=== PATIENT | female | born 1990 | race Caucasian/White ===

== ENCOUNTER 2017-05-15 22:07 | Emergency (ER) | payer OTHER ==
[2017-05-15 22:26] VITALS: BP 137/70; PULSE 107; RESP 18; TEMP 97.8
[2017-05-15] MEDS ORDERED: LORazepam 1 MG TAB PO STA (23:37)
--- NOTE | 2017-05-15 23:37 | ED ---
Recheck HPI - General Chief Complaint: Recheck/Abnormal Lab/Rx Stated Complaint: left side pain/spasm Time Seen by Provider: 05/15/17 23:20 Source: patient Mode of arrival: ambulatory Limitations: no limitations - Related Data Home Medications Medication Instructions Recorded Confirmed Gabapentin 800 mg PO TID 07/02/16 05/15/17 QUEtiapine [SEROquel] 50 mg PO HS 05/15/17 05/15/17 Previous Rx's Medication Instructions Recorded Famotidine [Pepcid] 20 mg PO BID PRN #60 tab 06/02/16 LORazepam [Ativan] 0.5 mg PO TID #12 tab 05/15/17 Allergies Allergy/AdvReac Type Severity Reaction Status Date / Time amoxicillin Allergy Rash/Hives Verified 07/02/16 10:59 aspirin Allergy Swelling Verified 07/02/16 10:59 Review of Systems ROS Statement: Those systems with pertinent positive or pertinent negative responses have been documented in the HPI. ROS Other: All systems not noted in ROS Statement are negative. Past Medical History Past Medical History: GERD/Reflux Additional Past Medical History / Comment(s): anemia History of Any Multi-Drug Resistant Organisms: None Reported Past Surgical History: Section, Cholecystectomy, Tonsillectomy Past Anesthesia/Blood Transfusion Reactions: No Reported Reaction Past Psychological History: Anxiety, Bipolar, Depression Smoking Status: Current every day smoker Past Alcohol Use History: None Reported Past Drug Use History: None Reported General Exam Limitations: no limitations Course Vital Signs 05/15/17 22:20 Temperature 97.8 F Pulse Rate 107 H Respiratory 18 Rate Blood Pressure 137/70 O2 Sat by Pulse 100 Oximetry Disposition Clinical Impression: Paresthesias Disposition: HOME SELF-CARE Condition: Good Instructions: Paresthesia (ED) Additional Instructions: Vision is follow-up with your H and primary care provider. Take medication as prescribed. Return to emergency department if any alarming signs or symptoms occur. Prescriptions: LORazepam [Ativan] 0.5 mg PO TID #12 tab Referrals: Jordan Tamayo MD [Primary Care Provider] - 1-2 days Kenneth Sanchez MD [STAFF PHYSICIAN] - 1-2 days Time of Disposition: 23:35
== END 2017-05-15 23:51 | disposition home or self-care (01) ==
LOC: EC 22:07
DX: R20.9 Unspecified disturbances of skin sensation (principal); F31.9 Bipolar disorder, unspecified; Z79.899 Other long term (current) drug therapy; Z88.6 Allergy status to analgesic agent; Z88.0 Allergy status to penicillin; F17.200 Nicotine dependence, unspecified, uncomplicated
CPT/HCPCS: 99283

== ENCOUNTER 2017-07-11 10:12 | Day surgery (SDC) | payer OTHER ==
[2017-07-07 11:16] VITALS: BMI 39.1
[~2017-07-11 10:12] MED LIST: LACTATED RINGERS 1,000 ML IV SCH
[2017-07-11 10:47] VITALS: TEMP 98.2
[2017-07-11] MEDS ORDERED: PROPOFOL 10 MG/ML 20 ML VIAL IV ONE (10:59)
[2017-07-11 11:36] VITALS: RESP 16
[2017-07-11 11:57] VITALS: BP 116/80; PULSE 80
--- NOTE | 2017-07-11 13:19 | P.PCN ---
Date of Procedure: 07/11/17 Procedure(s) Performed: Procedures: 1. Esophagogastroduodenoscopy and biopsy. 2. Colonoscopy and biopsy. Preoperative diagnosis: Chronic reflux symptoms and change in bowel habits. Postoperative diagnosis: 1. Small sliding hiatal hernia with low-grade distal esophagitis but no strictures or Rapp's esophagus. 2. Mild antral gastritis. 3. Normal colon and terminal ileum. 4. Biopsies obtained from the duodenum, antrum, esophagus, terminal ileum and right colon. Preparation: HalfLytely prep. Sedation: Was provided by anesthesia. Brief clinical history: The patient is a 26-year-old female who I have evaluated in the office last month because of chronic reflux symptoms of more than 10 years that has been exacerbated lately despite medical therapy, and stomach pains and diarrhea of 3 months duration. This evaluation is scheduled to R/O complicated reflux disease, inflammatory bowel disease or other pathology. Procedure: With the patient on her left lateral decubitus position and after informed consent and adequate sedation, I passed the Olympus-GIF 160 video upper endoscope through the cricopharyngeus down the esophagus. GE junction was around 36 cm from the incisors and there was a small sliding hiatal hernia measuring between 1-2 cm. The esophagus showed short superficial erosion but no ulcers, strictures or Rapp's esophagus. The endoscope was then passed into the stomach which was insufflated with air and inspected in detail including the retroflex view of the cardia. There was some mottling and erythema in the antrum but no ulcers or erosions. Pyloric channel, duodenal bulb, post bulbar area and descending duodenum appeared within normal limits. Because of her symptoms, I obtained biopsies from the duodenum, antrum and esophagus then the endoscope was withdrawn and I proceeded with the colonoscopy. Perianal area did not show any fissures or fistulas. There were no masses felt on digital rectal examination. The Olympus CFQ 160L video colonoscope was then inserted in the rectum in the usual fashion and advanced to the cecum. I intubated the ileocecal valve and examined the terminal ileum. The mucosa appeared healthy. No polyps or tumors were seen or any obvious diverticular disease or other pathology. I retroflexed the endoscope in the rectum before the endoscope was withdrawn. I obtained biopsies from the terminal ileum and right colon. The patient tolerated the procedure well. Plan: The patient was reassured. Will await pathology results. She will follow -up with you as planned and I'll keep you updated on her progress..
== END 2017-07-11 12:06 | disposition home or self-care (01) ==
LOC: ORWHC2ENDO 10:12
DX: K21.0 Gastro-esophageal reflux disease with esophagitis (principal); K44.9 Diaphragmatic hernia without obstruction or gangrene; R19.7 Diarrhea, unspecified; K29.50 Unspecified chronic gastritis without bleeding; F17.200 Nicotine dependence, unspecified, uncomplicated; Z88.6 Allergy status to analgesic agent; Z88.1 Allergy status to other antibiotic agents; Z79.899 Other long term (current) drug therapy
CPT/HCPCS: 45380; 43239; 81025; 88305; 88342; J2704

== ENCOUNTER 2017-11-25 15:41 | Emergency (ER) | payer OTHER ==
--- NOTE | 2017-11-25 16:02 | ED ---
Psych HPI - General Chief Complaint: Psychiatric Symptoms Stated Complaint: Mental Health Eval Time Seen by Provider: 11/25/17 15:49 Source: patient, RN notes reviewed Mode of arrival: ambulatory Limitations: no limitations - History of Present Illness Initial Comments: 27-year-old female presents emergency Department with chief complaint of worsening depression. Patient states that she had a recent change approximate one month ago on her Risperdal. Patient states has worsened her symptoms. She states she does not feel safe at home though she states that she is not currently suicidal. She states that she just knows how desperate she can get an that she may harm herself. Patient states that she has been hospitalized before for psychosis. Patient denies any physical injuries at this time denies homicidal ideation denies illicit drug use or any alcohol abuse. - Related Data Home Medications Medication Instructions Recorded Confirmed Gabapentin 800 mg PO HS MDD SEE COMMENT 07/02/16 11/25/17 Cholecalciferol [Vitamin D3] 1,000 unit PO DAILY 07/07/17 11/25/17 Famotidine [Pepcid] 20 mg PO BID 07/07/17 11/25/17 traMADol HCL [Ultram] 50 mg PO Q6HR PRN 07/07/17 11/25/17 Ferrous Sulfate [Feosol] 325 mg PO TID 11/25/17 11/25/17 risperiDONE [RisperDAL] 1 mg PO BID@0800,1700 11/25/17 11/25/17 Allergies Allergy/AdvReac Type Severity Reaction Status Date / Time amoxicillin Allergy Rash/Hives Verified 11/25/17 16:07 aspirin Allergy Swelling Verified 11/25/17 16:07 Review of Systems ROS Statement: Those systems with pertinent positive or pertinent negative responses have been documented in the HPI. ROS Other: All systems not noted in ROS Statement are negative. Past Medical History Past Medical History: GERD/Reflux Additional Past Medical History / Comment(s): anemia, states having diarrhea for 3 months and stomach pain. previous heroin abuse. History of Any Multi-Drug Resistant Organisms: None Reported Past Surgical History: Section, Cholecystectomy, Tonsillectomy Past Anesthesia/Blood Transfusion Reactions: No Reported Reaction Additional Past Anesthesia/Blood Transfusion Reaction / Comment(s): grandmother did not wake up . Past Psychological History: Anxiety, Bipolar, Depression Smoking Status: Current every day smoker Past Alcohol Use History: None Reported Past Drug Use History: Marijuana - Past Family History Father Family Medical History: Cancer Additional Family Medical History / Comment(s): SKIN CANCER General Exam Limitations: no limitations General appearance: alert, in no apparent distress Head exam: Present: atraumatic, normocephalic, normal inspection Eye exam: Present: normal appearance, PERRL, EOMI. Absent: scleral icterus, conjunctival injection, periorbital swelling ENT exam: Present: normal exam, mucous membranes moist Neck exam: Present: normal inspection, full ROM. Absent: tenderness, meningismus, lymphadenopathy Respiratory exam: Present: normal lung sounds bilaterally. Absent: respiratory distress, wheezes, rales, rhonchi, stridor Cardiovascular Exam: Present: regular rate, normal rhythm, normal heart sounds. Absent: systolic murmur, diastolic murmur, rubs, gallop, clicks GI/Abdominal exam: Present: soft, normal bowel sounds. Absent: distended, tenderness, guarding, rebound, rigid Neurological exam: Present: alert, oriented X3, CN II-XII intact Psychiatric exam: Present: depressed, other (Patient is tearful) Skin exam: Present: warm, dry, intact, normal color. Absent: rash Course Vital Signs 11/25/17 15:43 Temperature 98.5 F Pulse Rate 92 Respiratory 18 Rate Blood Pressure 131/77 O2 Sat by Pulse 97 Oximetry Medical Decision Making - Medical Decision Making 27-year-old female presented for depression. Patient was evaluated by EPS case discussed with on-call psychiatrist. They did not recommend inpatient treatment. Patient will follow up outpatient and she is given mobile crisis unit. Patient agrees this plan she states she does feel safe to be discharged. - Lab Data Lab Results 11/25/17 11/25/17 Range/Units 16:30 16:30 Urine HCG, Qual Not Detected (Not Detectd) Urine Opiates Screen Detected H (NotDetected) Ur Oxycodone Screen Not Detected (NotDetected) Urine Methadone Screen Not Detected (NotDetected) Ur Propoxyphene Screen Not Detected (NotDetected) Ur Barbiturates Screen Not Detected (NotDetected) U Tricyclic Antidepress Not Detected (NotDetected) Ur Phencyclidine Scrn Not Detected (NotDetected) Ur Amphetamines Screen Not Detected (NotDetected) U Methamphetamines Scrn Not Detected (NotDetected) U Benzodiazepines Scrn Not Detected (NotDetected) Urine Cocaine Screen Not Detected (NotDetected) U Marijuana (THC) Screen Detected H (NotDetected) Disposition Clinical Impression: Depression Disposition: HOME SELF-CARE Condition: Stable Instructions: Depression (ED) Additional Instructions: Please return to the Emergency Department if symptoms worsen or any other concerns. Referrals: Charlee Copeland MD [Primary Care Provider] - 1-2 days Time of Disposition: 17:43
[2017-11-25 17:02] LABS: Amphetamine Screen,Urine Not Detected (NotDetected); Barbiturate Screen,Urine Not Detected (NotDetected); Benzodiazepines Screen,Urine Not Detected (NotDetected); Cocaine Screen,Urine Not Detected (NotDetected); Methadone Screen, Urine Not Detected (NotDetected); Opiate Screen,Urine Detected (NotDetected); Oxycodone Screen, Urine Not Detected (NotDetected); Phencyclidine Screen,Urine Not Detected (NotDetected); Tricyclic Antidepressant,Urine Not Detected (NotDetected); Urn Cannabinoid Scrn Detected (NotDetected)
[2017-11-25 18:11] VITALS: BP 124/67; PULSE 73; RESP 16; TEMP 98
== END 2017-11-25 18:11 | disposition home or self-care (01) ==
LOC: EC 15:41
DX: F31.30 Bipolar disorder, current episode depressed, mild or moderate severity, unspecified (principal); R45.83 Excessive crying of child, adolescent or adult; K21.9 Gastro-esophageal reflux disease without esophagitis; D64.9 Anemia, unspecified; F17.200 Nicotine dependence, unspecified, uncomplicated; Z79.899 Other long term (current) drug therapy; Z88.0 Allergy status to penicillin; Z88.6 Allergy status to analgesic agent
CPT/HCPCS: 80306; 81025; 82075; 99284

== ENCOUNTER → 2019-02-26 | Outpatient (CLI) | payer OTHER ==
--- NOTE | 2019-02-26 11:41 | US ---
EXAMINATION TYPE: US abdomen complete DATE OF EXAM: 02/26/2019 COMPARISON: NONE CLINICAL HISTORY: Elevated lipase R74.8,Nausea R11.0,Pale Stool R19.5. EXAM MEASUREMENTS: Liver Length: 13.8 cm Gallbladder Wall: Surgically absent CBD: 0.6 cm Spleen: 10.5 cm Right Kidney: 12.0 x 3.7 x 5.4 cm Left Kidney: 12.2 x 5.7 x 4.9 cm Patient of large body habitus Pancreas: small portion of head and tail obscured by bowel gas Liver: wnl Gallbladder: Surgically absent Evidence for sonographic Dial's sign: no CBD: wnl Spleen: wnl Right Kidney: wnl Left Kidney: Inferior pole obscured by bowel gas Upper IVC: wnl Abd Aorta: Mild atherosclerosis The liver is homogenous. The intrahepatic portion of the IVC and proximal abdominal aorta are within normal limits. There is no evidence of cholelithiasis. Common bile duct is unremarkable. The visu alized portions of the pancreas are homogenous. The spleen is unremarkable. Kidneys are symmetric a nd free of hydronephrosis. No renal lesions are seen. IMPRESSION: 1. No dilation of the common bile duct in this patient status post cholecystectomy. 2. Pancreas appears homogeneous on ultrasound however small portion of pancreatic head and tail are o bscured by bowel gas.
== END | disposition home or self-care (01) ==
LOC: RADUSWWP 09:46
PROVIDERS: ATTEND Family Medicine
DX: R74.8 Abnormal levels of other serum enzymes (principal); R11.0 Nausea; R19.5 Other fecal abnormalities; Z90.49 Acquired absence of other specified parts of digestive tract
CPT/HCPCS: 76700

== ENCOUNTER 2020-02-29 19:11 | Emergency (ER) | payer OTHER ==
[2020-02-29 19:21] VITALS: TEMP 99
[2020-02-29 21:09] LABS: Amphetamine Screen,Urine Not Detected (NotDetected); Barbiturate Screen,Urine Not Detected (NotDetected); Benzodiazepines Screen,Urine Not Detected (NotDetected); Cocaine Screen,Urine Not Detected (NotDetected); Methadone Screen, Urine Not Detected (NotDetected); Opiate Screen,Urine Detected (NotDetected); Oxycodone Screen, Urine Not Detected (NotDetected); Phencyclidine Screen,Urine Not Detected (NotDetected); Tricyclic Antidepressant,Urine Not Detected (NotDetected); Urn Cannabinoid Scrn Detected (NotDetected)
[2020-02-29] MEDS ORDERED: HYDROcodone/APAP 10-325MG 1 EACH TAB PO ONE (22:12)
[2020-02-29] MEDS ORDERED: LORazepam 1 MG TAB PO STA (22:13)
[2020-02-29 23:09] LABS: Appearance,Urine Clear (Clear); Bilirubin,Urine Negative (Negative); Blood,Urine Negative (Negative); Color,Urine Yellow; Glucose,Urine (UA) Negative (Negative); Ketones,Urine Negative (Negative); Leukocyte Esterase,Urine Negative (Negative); Nitrite,Urine Negative (Negative); Protein,Urine Negative (Negative); Specific Gravity,Urine 1.018 (1.001-1.035)
--- NOTE | 2020-02-29 23:20 | ED ---
General Adult HPI - General Chief complaint: Psychiatric Symptoms Stated complaint: Mental Health Time Seen by Provider: 02/29/20 19:34 Source: patient, RN notes reviewed Mode of arrival: ambulatory Limitations: no limitations - History of Present Illness Initial comments: 29-year-old female with a past medical history of GERD, previous heroin abuse, bipolar disorder, depression, anxiety presents to the emergency department for a chief complaint of psych evaluation. Patient states her family wanted her to be evaluated. Patient states she is supposed to be taking antipsychotic medication but stopped this several months ago. Patient states she ran out of her antidepressant. Patient states she feels fine. She admits that she did threaten her as well as her [id number] and told them she would kill them while she was sleeping because she was upset about staying in the house. I spoke to the directly in a separate room and he showed me pictures of patient eating plants and sleeping in the rain. States that she is not acting normally. Patient has no other complaints at this time including shortness of breath, chest pain, abdominal pain, nausea or vomiting, headache, or visual changes. - Related Data Home Medications Medication Instructions Recorded Confirmed Gabapentin 800 mg PO HS MDD SEE COMMENT 07/02/16 11/25/17 Cholecalciferol [Vitamin D3] 1,000 unit PO DAILY 07/07/17 11/25/17 Famotidine [Pepcid] 20 mg PO BID 07/07/17 11/25/17 traMADol HCL [Ultram] 50 mg PO Q6HR PRN 07/07/17 11/25/17 Ferrous Sulfate [Feosol] 325 mg PO TID 11/25/17 11/25/17 risperiDONE [RisperDAL] 1 mg PO BID@0800,1700 11/25/17 11/25/17 Allergies Allergy/AdvReac Type Severity Reaction Status Date / Time amoxicillin Allergy Rash/Hives Verified 02/29/20 19:20 aspirin Allergy Swelling Verified 02/29/20 19:20 Review of Systems ROS Statement: Those systems with pertinent positive or pertinent negative responses have been documented in the HPI. ROS Other: All systems not noted in ROS Statement are negative. Past Medical History Past Medical History: GERD/Reflux Additional Past Medical History / Comment(s): anemia, states having diarrhea for 3 months and stomach pain. previous heroin abuse. History of Any Multi-Drug Resistant Organisms: None Reported Past Surgical History: Section, Cholecystectomy, Tonsillectomy Past Anesthesia/Blood Transfusion Reactions: No Reported Reaction Additional Past Anesthesia/Blood Transfusion Reaction / Comment(s): grandmother did not wake up . Past Psychological History: Anxiety, Bipolar, Depression Smoking Status: Current every day smoker Past Alcohol Use History: None Reported Past Drug Use History: Marijuana - Past Family History Father Family Medical History: Cancer Additional Family Medical History / Comment(s): SKIN CANCER General Exam Limitations: no limitations General appearance: alert, in no apparent distress Head exam: Present: atraumatic, normocephalic, normal inspection Eye exam: Present: normal appearance, PERRL, EOMI. Absent: scleral icterus, conjunctival injection, periorbital swelling ENT exam: Present: normal exam, mucous membranes moist Neck exam: Present: normal inspection, full ROM. Absent: tenderness, meningismus, lymphadenopathy Respiratory exam: Present: normal lung sounds bilaterally. Absent: respiratory distress, wheezes, rales, rhonchi, stridor Cardiovascular Exam: Present: regular rate, normal rhythm, normal heart sounds. Absent: systolic murmur, diastolic murmur, rubs, gallop, clicks GI/Abdominal exam: Present: soft, normal bowel sounds. Absent: distended, tenderness, guarding, rebound, rigid Neurological exam: Present: alert Course Vital Signs 02/29/20 19:18 Temperature 99 F Pulse Rate 95 Respiratory 18 Rate Blood Pressure 131/91 O2 Sat by Pulse 99 Oximetry Medical Decision Making - Medical Decision Making Vitals are stable. On presentation patient is pleasant. However once we discussed the patient that she would be admitted to the hospital she became very angry. Security had to be called she was trying to leave, trying to threaten her . We did ask her to leave. At this time patient is showing psychotic behaviors and homicidal thoughts. She will be admitted for psychiatric treatment. She was certed by Dr. Leung. - Lab Data Lab Results 02/29/20 02/29/20 Range/Units 20:25 20:25 Urine Color Yellow Urine Appearance Clear (Clear) Urine pH 7.0 (5.0-8.0) Ur Specific [place] 1.018 (1.001-1.035) Urine Protein Negative (Negative) Urine Glucose (UA) Negative (Negative) Urine Ketones Negative (Negative) Urine Blood Negative (Negative) Urine Nitrite Negative (Negative) Urine Bilirubin Negative (Negative) Urine Urobilinogen 2.0 (<2.0) mg/dL Ur Leukocyte Esterase Negative (Negative) Urine Opiates Screen Detected H (NotDetected) Ur Oxycodone Screen Not Detected (NotDetected) Urine Methadone Screen Not Detected (NotDetected) Ur Propoxyphene Screen Not Detected (NotDetected) Ur Barbiturates Screen Not Detected (NotDetected) U Tricyclic Antidepress Not Detected (NotDetected) Ur Phencyclidine Scrn Not Detected (NotDetected) Ur Amphetamines Screen Not Detected (NotDetected) U Methamphetamines Scrn Not Detected (NotDetected) U Benzodiazepines Scrn Not Detected (NotDetected) Urine Cocaine Screen Not Detected (NotDetected) U Marijuana (THC) Screen Detected H (NotDetected) Disposition Clinical Impression: Acute psychosis Disposition: TRANSFER TO PSYCH HOSP/UNIT Condition: Fair Is patient prescribed a controlled substance at d/c from ED?: No Referrals: Russell Hendrix MD [Primary Care Provider] - 1-2 days Time of Disposition: 23:25
[2020-03-01 07:49] LABS: Basophils # (A) 0.1 k/uL (0-0.2); Basophils % (A) 1 %; Eosinophils # (A) 0.3 k/uL (0-0.7); Eosinophils % (A) 4 %; HCT 45.5 % (34.0-46.0); HGB 15.1 gm/dL (11.4-16.0); Lymphocytes # (A) 2.1 k/uL (1.0-4.8); Lymphocytes % (A) 24 %; MCH 30.2 pg (25.0-35.0); MCHC 33.2 g/dL (31.0-37.0); MCV 91.2 fL (80.0-100.0); Monocytes # (A) 0.3 k/uL (0-1.0); Monocytes % (A) 4 %; Neutrophils # (A) 5.9 k/uL (1.3-7.7); Neutrophils % (A) 66 %; Platelet Count 317 k/uL (150-450); RBC 4.99 m/uL (3.80-5.40); RDW 13.5 % (11.5-15.5); WBC 8.8 k/uL (3.8-10.6)
[2020-03-01 07:56] LABS: ALT 15 U/L (4-34); AST 19 U/L (14-36); African American GFR (CKD) >90 (>60 ml/min/1.73 sqM); Albumin 4.3 g/dL (3.5-5.0); Alkaline Phosphatase 70 U/L (38-126); Anion Gap 6 mmol/L; Blood Urea Nitrogen 8 mg/dL (7-17); Calcium 9.9 mg/dL (8.4-10.2); Carbon Dioxide 26 mmol/L (22-30); Chloride 107 mmol/L (98-107); Glucose 100 mg/dL (74-99); Non-African American GFR(CKD) >90 (>60 ml/min/1.73 sqM); Potassium 4.2 mmol/L (3.5-5.1); Sodium 139 mmol/L (137-145); Total Bilirubin 0.6 mg/dL (0.2-1.3); Total Protein 7.5 g/dL (6.3-8.2)
[2020-03-01 08:54] VITALS: BP 125/81; PULSE 86; RESP 20
== END 2020-03-01 09:14 ==
LOC: EC 19:11
DX: F23 Brief psychotic disorder (principal); K21.9 Gastro-esophageal reflux disease without esophagitis; F41.9 Anxiety disorder, unspecified; F31.9 Bipolar disorder, unspecified; F17.200 Nicotine dependence, unspecified, uncomplicated; Z79.899 Other long term (current) drug therapy; Z88.0 Allergy status to penicillin; Z88.6 Allergy status to analgesic agent
CPT/HCPCS: 36415; 80053; 80306; 81003; 81025; 82075; 85025; 99285

== ENCOUNTER → 2020-09-23 | Outpatient (CLI) | payer OTHER ==
--- NOTE | 2020-09-23 13:26 | US ---
EXAMINATION TYPE: US transvaginal DATE OF EXAM: 09/23/2020 COMPARISON: NONE CLINICAL HISTORY: E28.2 POLYCYSTIC OVARIAN DISEASE. TECHNIQUE: . Transabdominal sonographic images of the pelvis were acquired. Transvaginal sonographi c images were medically necessary to better assess the following anatomy: Date of LMP: EXAM MEASUREMENTS: Uterus: 9.2 x 4.8 x 5.2 cm Endometrial Stripe: 0.7 cm Right Ovary: 2.7 x 1.8 x 1.9 cm Left Ovary: 2.6 x 1.6 x 1.5 cm 1. Uterus: Anteverted heterogeneous 2. Endometrium: wnl 3. Right Ovary: wnl 4. Left Ovary: wnl, not as well visualized as right due to overlying bowel gas 5. Bilateral Adnexa: wnl 6. Posterior cul-de-sac: wnl IMPRESSION: Heterogenous uterine myometrium is nonspecific and may reflect small leiomyomatous change. Correlate clinically.
== END | disposition home or self-care (01) ==
LOC: RADUSWWP 12:14
PROVIDERS: ATTEND Family Medicine
DX: E28.2 Polycystic ovarian syndrome (principal)
CPT/HCPCS: 76830

== ENCOUNTER → 2021-02-19 | Outpatient (CLI) | payer OTHER ==
[2021-02-19 22:28] LABS: Peanut IgE <0.10 kU/L
[2021-02-19 22:29] LABS: Walnut IgE (Food) <0.10 kU/L
[2021-02-22 11:51] LABS: Hazelnut IgE <0.10 kU/L (<0.10); Hazelnut IgE Class CLASS 0
[2021-02-22 11:52] LABS: Almond IgE <0.10 kU/L (<0.10); Almond IgE Class CLASS 0; Brazil Nut IgE <0.10 kU/L (<0.10); Brazil Nut IgE Class CLASS 0; Cashew IgE <0.10 kU/L (<0.10); Cashew IgE Class CLASS 0; Pecan IgE <0.10 kU/L (<0.10); Pecan IgE Class CLASS 0; Pistachio IgE Class CLASS 0
== END | disposition home or self-care (01) ==
LOC: LABWHC1 11:26
PROVIDERS: ATTEND Internal Medicine
DX: R11.2 Nausea with vomiting, unspecified (principal)
CPT/HCPCS: 36415; 86003

== ENCOUNTER 2021-08-06 08:09 | Day surgery (SDC) | payer OTHER ==
[2021-08-04 11:56] VITALS: BMI 33.3
[~2021-08-06 08:09] MED LIST changes: +DEXAMETHASONE SOD PHOSPHATE 4 MG/ML 1 ML VIAL IV ONE; +HYDROmorphone 0.5 MG/0.5 ML SYRINGE IVP PRN; +MIDAZOLAM 2 MG/2 ML VIAL IV PRN; +ONDANSETRON 4 MG/2 ML VIAL IVP ONE; +Pre Op ABX Message 1 EACH MISC MISCELLANE ONE; +SCOPOLAMINE 1.5MG/72HR PATCH TRANSDERM ONE
[2021-08-06] MEDS ORDERED: LIDOCAINE 1% (10MG/ML) FOR IV START INTRADERMA ONE (08:38)
[2021-08-06] MEDS ORDERED: PROPOFOL 10 MG/ML 20 ML VIAL IV ONE (08:50)
[2021-08-06] MEDS ORDERED: MIDAZOLAM 2 MG/2 ML VIAL ONE (08:50)
[2021-08-06] MEDS ORDERED: KETOROLAC 15 MG/ML 1 ML VIAL ONE (08:50)
[2021-08-06] MEDS ORDERED: fentaNYL (PF) 50 MCG/ML 2 ML AMP ONE (08:50)
[2021-08-06] MEDS ORDERED: SUCCINYLCHOLINE CHLORIDE 100 MG/5 ML SYR IV ONE (08:50)
[2021-08-06] MEDS ORDERED: SODIUM CHLORIDE 0.9% 100 ML with ceFAZolin 2,000 MG IV ONE ×2 (09:10)
[2021-08-06] MEDS ORDERED: BUPIVACAIN-EPI 0.25%-1:200,000 30 ML VIAL SQ ONE ×2 (09:13)
--- NOTE | 2021-08-06 09:47 | P.OP ---
Date of Procedure: 08/06/21 Preoperative Diagnosis: Nonhealing cystic lesion Postoperative Diagnosis: Nonhealing cystic lesion Procedure(s) Performed: Excision of cyst Anesthesia: TAM Surgeon: Eva Solano Estimated Blood Loss (ml): 5 Pathology: other Condition: stable Disposition: PACU Indications for Procedure: Patient presented with a lesion off the midline of the cleft. It's been persistently getting infected Description of Procedure: Patient's taken the OR where she is prepped and draped in the usual sterile manner under a general anesthetic. Local anesthetic was instilled in the skin and subcutaneous tissue. An elliptical incision was made in the skin opening from the lesion was sharply excised. The skin defect was 0.5 x 4 cm. The lesion was then dissected free from the subcutaneous tissues. It went in about 3.5 cm. Small bleeding points are controlled with electrocautery. The subcutaneous tissues were then reapproximated using 3-0 Vicryl. The skin was closed with 3-0 Monocryl and skin glue. She tolerated the procedure without difficulty and was taken recovery room in satisfactory condition. According to or personnel, all counts are correct. Plan - Discharge Summary Discharge Rx Participant: No New Discharge Prescriptions: New Sulfamethox-Tmp 800-160Mg [Bactrim DS 800-160 mg] 1 tab PO Q12HR #10 tab traMADol HCL 1 - 2 mg PO Q4-6H PRN #20 tablet PRN Reason: Pain No Action Gabapentin 400 mg PO QID cloNIDine HCL [Catapres] 0.5 tab PO TID Desvenlafaxine Succinate [Pristiq] 100 mg PO DAILY ARIPiprazole [Abilify] 10 mg PO HS Acyclovir 800 mg PO DAILY Multivitamin with Iron [Multivitamins with Iron] 1 each PO DAILY Discharge Medication List Gabapentin 400 mg PO QID 07/02/16 [History] ARIPiprazole [Abilify] 10 mg PO HS 08/04/21 [History] Acyclovir 800 mg PO DAILY 08/04/21 [History] Desvenlafaxine Succinate [Pristiq] 100 mg PO DAILY 08/04/21 [History] Multivitamin with Iron [Multivitamins with Iron] 1 each PO DAILY 08/04/21 [History] cloNIDine HCL [Catapres] 0.5 tab PO TID 08/04/21 [History] Sulfamethox-Tmp 800-160Mg [Bactrim DS 800-160 mg] 1 tab PO Q12HR #10 tab 08/06/21 [Rx] traMADol HCL 1 - 2 mg PO Q4-6H PRN #20 tablet 08/06/21 [Rx] Follow up Appointment(s)/Referral(s): Eva Solano DO [Doctor of Osteopathic Medicine] - 2 Weeks Activity/Diet/Wound Care/Special Instructions: Ice to the incision for 24 hours. May shower Monday. Do not soak in a tub. May take Tylenol or Motrin as needed for pain Discharge Disposition: HOME SELF-CARE
[2021-08-06 09:49] VITALS: RESP 16; TEMP 97.4
[2021-08-06 10:57] VITALS: BP 107/70; PULSE 79
== END 2021-08-06 11:09 | disposition home or self-care (01) ==
LOC: OR 08:09
PROVIDERS: ATTEND Surgery
DX: L98.9 Disorder of the skin and subcutaneous tissue, unspecified (principal)
CPT/HCPCS: 11406; 81025; 88305; J2250; J1100; J2405; J0690; J3010; J1885; J0330; J2704

== ENCOUNTER → 2022-10-18 | Outpatient (CLI) | payer OTHER | END | disposition home or self-care (01) | LOC: LABWHC1 11:34 | PROVIDERS: ATTEND Family Medicine | DX: B89 Unspecified parasitic disease (principal) | CPT/HCPCS: 87502 ==

== ENCOUNTER → 2024-08-22 | Outpatient (CLI) | payer OTHER | END | disposition home or self-care (01) | LOC: LABWHC1 09:16 | PROVIDERS: ATTEND Family Medicine | DX: R10.84 Generalized abdominal pain (principal) | CPT/HCPCS: 36415; 84702 ==